=== PATIENT | female | born 1990 | race African-American/Black ===

== ENCOUNTER 2018-10-02 13:29 | Emergency (ER) | payer OTHER ==
[2018-10-02 13:35] VITALS: RESP 16; TEMP 97.6
[2018-10-02] MEDS ORDERED: ACETAMINOPHEN TAB 325 MG TAB PO STA (14:22)
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
[2018-10-02 15:27] VITALS: BP 120/64; PULSE 62
== END 2018-10-02 15:24 | disposition home or self-care (01) ==
LOC: EC 13:29
DX: O9A.211 Injury, poisoning and certain other consequences of external causes complicating pregnancy, first trimester (principal); S16.1XXA Strain of muscle, fascia and tendon at neck level, initial encounter; S39.012A Strain of muscle, fascia and tendon of lower back, initial encounter; V43.52XA Car driver injured in collision with other type car in traffic accident, initial encounter; Y92.410 Unspecified street and highway as the place of occurrence of the external cause; Z3A.08 8 weeks gestation of pregnancy
CPT/HCPCS: 99284